=== PATIENT | female | born 1945 | race Caucasian/White ===

== ENCOUNTER 2017-05-25 10:32 | Inpatient (IN) | payer MEDICARE, BC ==
[~2017-05-25] VITALS: Ht 154.9 cm; Wt 59.1 kg
--- NOTE | 2017-05-25 10:46 | NUR ---
[facility] to ER after a GLF today; c/o severe right hip pain 10/10 scale; morphine 8 mg given in the field by the EMS
[2017-05-25] MEDS ORDERED: HYDROMORPHONE INJ 2 MG/ML DISP.SYRIN ONE ×2 (10:47→12:00)
--- NOTE | 2017-05-25 10:47 | NUR ---
seen by Cat with orders for pain medication
[2017-05-25 10:56] LABS: BASOPHILS % (AUTO) 0.4 % (0.0-2.0); EOSINOPHILS # (AUTO) 0.2 /CMM (0.0-0.7); EOSINOPHILS % (AUTO) 2.3 % (0.0-6.0); HEMATOCRIT 39 % (33-45); HEMOGLOBIN 13.2 g/dL (11.5-14.8); LYMPHOCYTES # (AUTO) 1.7 /CMM (0.8-4.8); LYMPHOCYTES % (AUTO) 18.4 % (20.0-44.0); MEAN CORPUSCULAR HEMOGLOBIN 31 PG (26.0-33.0); MEAN CORPUSCULAR HGB CONC 34 g/dl (31.0-36.0); MEAN CORPUSCULAR VOLUME 90 fL (82-100); MONOCYTES # (AUTO) 0.7 /CMM (0.1-1.30); MONOCYTES % (AUTO) 7.2 % (2.0-12.0); NEUTROPHILS # (AUTO) 6.5 /CMM (1.8-8.9); NEUTROPHILS % (AUTO) 71.7 % (43.0-81.0); PLATELET COUNT (AUTO) 310 /CMM (150-450); RDW COEFFICIENT OF VARIATION 13.5 (11.5-15.0); RED BLOOD CELL COUNT(AUTO) 4.33 MIL/uL (4.0-5.2); WHITE BLOOD COUNT (AUTO) 9.1 K/uL (4.3-11.0)
[2017-05-25] MEDS ORDERED: HYDROMORPHONE 1 MG/1 ML DISP.SYRIN IV ONE ×2 (11:00→12:00)
[2017-05-25 11:07] LABS: CALCIUM, SERUM 8.7 mg/dL (8.5-10.1); CARBON DIOXIDE 24 mmol/L (21-32); CHLORIDE 108 mmol/L (98-107); CREATININE 1.1 mg/dL (0.6-1.3); GLUCOSE 99 mg/dL (74-106); POTASSIUM 4.5 mmol/L (3.5-5.1); SODIUM SERUM 139 mmol/L (136-145); UREA NITROGEN, BLOOD 21 mg/dL (7-18)
[2017-05-25 11:08] LABS: INR 0.97 (0.87-1.13); PROTHROMBIN TIME 10.1 SECS (9.5-12.7)
--- NOTE | 2017-05-25 11:27 | NUR ---
EPIC PAGED, GROUP CONTRACT ANALYST
--- NOTE | 2017-05-25 11:29 | NUR ---
CALLED NURSING SUP. FOR MS BED
[2017-05-25] MEDS ORDERED: MAGNESIUM HYDROXIDE 30 ML UDC PO PRN (11:30)
[2017-05-25] MEDS ORDERED: HYDROCODONE/APAP 5/325MG 1 EACH TABLET PO PRN (11:30)
[2017-05-25] MEDS ORDERED: Z GUARD REMEDY 2 OZ OINT TP PRN (11:30)
[2017-05-25] MEDS ORDERED: MAG HYDROX/AL HYDROX/SIMETH 30 ML UDC PO PRN (11:30)
[2017-05-25] MEDS ORDERED: ACETAMINOPHEN 325 MG TABLET PO PRN (11:30)
--- NOTE | 2017-05-25 11:31 | NUR ---
BROOKS SMITH, FRANCIS DALAL CONCRETE PUMP OPERATOR
[2017-05-25] MEDS ORDERED: CARV3.122 PO (11:57)
[2017-05-25] MEDS ORDERED: VIT1CAPS9 PO (11:57)
[2017-05-25] MEDS ORDERED: ASPI-1169 PO (11:57)
[2017-05-25] MEDS ORDERED: DIPH25CA6 PO (11:57)
[2017-05-25] MEDS ORDERED: LANS30CA54 PO (11:57)
[2017-05-25] MEDS ORDERED: ROSU5TAB9 PO (11:57)
[2017-05-25 12:00] VITALS: BP 118/54
--- NOTE | 2017-05-25 12:09 | NUR ---
MS [id number]
--- NOTE | 2017-05-25 12:21 | NUR ---
GAVE REPORT TO [facility] ROOM [address] SHAKILA SOLORIO ADMITTING DX RT HIP FX
--- NOTE | 2017-05-25 13:30 | NUR ---
MS/CHRO PATIENT ADMITTED TO MED SURG FROM ER FOR DIAGNOSIS OF S/P FALL RIGHT HIP FRACTURE. REPORT GIVEN BY JOSEFINA FROM ER. A/O X 4. NO SIGNS OF ACUTE DISTRESS. COMPLAIN OF PAIN RATED 8/10 TO RIGHT HIP FRACTURE SITE. IV SITE RIGHT AC 18 GZ, INTACT AND FLUSHING WELL. CONTINENT OF BOWEL AND BLADDER. ALL NEEDS ATTENDED TO AT THIS TIME. CALL LIGHT WITHIN REACH. WILL CONTINUE TO MONITOR TO ENSURE SAFETY.
[2017-05-25] MEDS: MORPHINE SULFATE INJ 2 MG/ML DISP.SYRIN IV PRN ×2 (14:37→20:49)
[2017-05-25] MEDS ORDERED: diphenhydrAMINE HCL 25 MG CAPSULE PO PRN (15:30)
[2017-05-25] MEDS: CARVEDILOL 3.125 MG TABLET PO SCH ×3 (15:30→20:49)
[2017-05-25 16:00] VITALS: BP 166/70
--- NOTE | 2017-05-25 16:43 | NUR ---
MS/RN SEEN BY AYO BERNARDO PATIENT SEEN BY ORTHO AYO BERNARDO WITH ORDERS FOR RIGHT HIP HEMIARTHROPLASTY PROCEDURE TOMORROW NOON. CONSENT FORM OBTAINED. NPO POST MIDNIGHT TONIGHT.
--- NOTE | 2017-05-25 18:29 | NUR ---
MS/RN CLOSING NOTE PATIENT IN BED IN STABLE CONDITION. A/O X 4. NO SIGNS OF ACUTE DISTRESS. NO COMPLAIN OF PAIN OR DISCOMFORT. ALL NEEDS ATTENDED TO. CALL LIGHT WITHIN REACH. WILL ENDORSE TO NEXT SHIFT FOR CONTINUITY OF CARE.
[2017-05-25] MEDS: ONDANSETRON HCL/PF 4 MG/2 ML VIAL IVP PRN (18:53)
--- NOTE | 2017-05-25 19:40 | NUR ---
RN OPENING NOTES RECEIVED REPORT FROM DAYSHIFT RN. FOUND Pt ASLEEP IN BED. EVEN AND UNLABORED RESPIRATIONS. NO S/S OF ACUTE DISTRESS OR SOB NOTED. Pt IS A/OX4, VERBAL, ABLE TO MAKE NEEDS KNOWN. IV ACCESS ON RAC #18G, SL. SAFETY MEASURES IN PLACE. BED LOW, LOCKED, HOB ELEVATED, SIDE RAILS UP, CALL LIGHT AND BEDSIDE TABLE WITHIN REACH. WILL CONTINUE TO MONITOR Pt THROUGHOUT THE NIGHT FOR SAFETY.
[2017-05-25 20:00] VITALS: BP 117/72
[2017-05-25] MEDS: ZOLPIDEM TARTRATE 5 MG TABLET PO PRN (23:37)
[2017-05-26] VITALS (9 sets, daily range): BP systolic 122–153; BP diastolic 61–83
--- NOTE | 2017-05-26 00:10 | NUR ---
RN NOTES RECEIVED ORDER FROM FRANCISCO NAYAK FOR MARIA CATHETER INSERTION.
[2017-05-26] MEDS: MORPHINE SULFATE INJ 2 MG/ML DISP.SYRIN IV PRN ×2 (05:07→20:35)
--- NOTE | 2017-05-26 06:51 | NUR ---
RN CLOSING NOTES NO SIGNIFICANT CHANGES IN Pt's CONDITION. Pt REMAINS STABLE AT THIS TIME. NO S/S OF ACUTE DISTRESS OR SOB NOTED DURING THE NIGHT. Pt HAS BEEN NPO SINCE ASHLEY DEE FOR RT HIP PROCEDURE SCHEDULED AT NOON TODAY. ALL NEEDS MET AND ATTENDED TO. SAFETY MEASURES IN PLACE. WILL ENDORSE TO DAYSHIFT RN FOR Pt's RYLEE.
--- NOTE | 2017-05-26 07:30 | NUR ---
m/s microsoft bi architect: initial assessment received pt in bed awake, a/ox4. pt unable to turn and refusing to be turned due to pain. pt aware that she is laying on her pants, but was cut down as stated. voiced no discomfort at this time.
[2017-05-26 07:56] LABS: BASOPHILS % (AUTO) 0.1 % (0.0-2.0); EOSINOPHILS # (AUTO) 0.3 /CMM (0.0-0.7); EOSINOPHILS % (AUTO) 2.2 % (0.0-6.0); HEMATOCRIT 38 % (33-45); HEMOGLOBIN 12.8 g/dL (11.5-14.8); LYMPHOCYTES % (AUTO) 6.7 % (20.0-44.0); MEAN CORPUSCULAR HEMOGLOBIN 30 PG (26.0-33.0); MEAN CORPUSCULAR HGB CONC 34 g/dl (31.0-36.0); MEAN CORPUSCULAR VOLUME 90 fL (82-100); MONOCYTES # (AUTO) 0.9 /CMM (0.1-1.30); MONOCYTES % (AUTO) 5.9 % (2.0-12.0); NEUTROPHILS # (AUTO) 13.3 /CMM (1.8-8.9); NEUTROPHILS % (AUTO) 85.1 % (43.0-81.0); PLATELET COUNT (AUTO) 248 /CMM (150-450); RDW COEFFICIENT OF VARIATION 13.4 (11.5-15.0); RED BLOOD CELL COUNT(AUTO) 4.21 MIL/uL (4.0-5.2); WHITE BLOOD COUNT (AUTO) 15.5 K/uL (4.3-11.0)
--- NOTE | 2017-05-26 07:57 | NUR ---
m/s retreader: notes pt called and still in a lot of pain 10/10 right hip, stated, "can you call the anesthesiologist to put me out to sleep." informed pt that i will f/u with pmd. roseanna (acnp) here and made aware with order to give morphine 2mg ivp x1 now and continue q 4 hr prn. order read back and carried out and acknowledged. pharmacist notified to verify order, spoke to rosette. pt made aware and education provided re: morphine.
[2017-05-26] MEDS ORDERED: MORPHINE SULFATE INJ 2 MG/ML DISP.SYRIN IV ONE (08:00)
[2017-05-26] MEDS: CARVEDILOL 3.125 MG TABLET PO SCH ×2 (08:05→22:14)
[2017-05-26] MEDS: ASPIRIN 81 MG TAB.CHEW PO SCH (08:05)
--- NOTE | 2017-05-26 08:09 | NUR ---
m/s c architect: notes medicated with morphine 2mg ivp x 1 as ordered by rn due to 10/10 right hip pain. instructed to call for assistance. vss. will continue to monitor.
--- NOTE | 2017-05-26 08:39 | NUR ---
m/s dental laboratory worker: notes pt still in a lot of pain as stated. dr. freeman at bedside at this time.
[2017-05-26 08:43] LABS: CALCIUM, SERUM 8.6 mg/dL (8.5-10.1); CARBON DIOXIDE 25 mmol/L (21-32); CHLORIDE 106 mmol/L (98-107); GLUCOSE 109 mg/dL (74-106); MAGNESIUM 2.4 mg/dL (1.8-2.4); PHOSPHORUS 3.3 mg/dL (2.5-4.9); POTASSIUM 4.2 mmol/L (3.5-5.1); SODIUM SERUM 139 mmol/L (136-145); UREA NITROGEN, BLOOD 25 mg/dL (7-18)
--- NOTE | 2017-05-26 08:45 | NUR ---
m/s entertainer & comic: cardio f/u seen and examined by dr. freeman at this time. dr. freeman spoke to roseanna (acnp) and informed him that pt still in a lot of pain. received verbal order to give dilaudid 1mg ivp x 1 now and change morphine 2mg q2 hrs prn. order read back and carried out and acknowledged. pt made aware.
[2017-05-26] MEDS ORDERED: HYDROMORPHONE 1 MG/1 ML DISP.SYRIN IV ONE (09:00)
--- NOTE | 2017-05-26 09:10 | NUR ---
m/s funeral planning counselor: notes medicated with dilaudid 1mg ivp by rn due to 10/10 right hip pain. instructed to call for assistance. will continue to monitor.
--- NOTE | 2017-05-26 09:40 | NUR ---
m/s courtesy van driver: notes pt soundly asleep. resp. even and unlabored. no apparent distress noted. will continue to monitor.
[2017-05-26] MEDS: IV NS 0.9% 1,000 ML IV PRN (09:53)
--- NOTE | 2017-05-26 11:50 | NUR ---
m/s marketing information manager: notes family at bedside. pt to o.r. via bed accompanied by o.r. staff with chart. pt still wearing clothes and request for them to cut it off.
[2017-05-26] MEDS ORDERED: MORPHINE SULFATE INJ 10 MG/ML DISP.SYRIN ONE (12:11)
[2017-05-26] MEDS ORDERED: ROCURONIUM BROMIDE 50 MG/5 ML ONE ×2 (12:11→13:26)
[2017-05-26] MEDS ORDERED: BACITRACIN 50000 UNITS/VIAL ONE (12:46)
[2017-05-26] MEDS ORDERED: BUPIVACAINE 0.5 % PF 150 MG/30 ML VIAL ONE (12:46)
[2017-05-26] MEDS ORDERED: ACETAMINOPHEN 325 MG TABLET PO PRN (15:00)
[2017-05-26] MEDS ORDERED: MORPHINE SULFATE INJ 4 MG/ML DISP.SYRIN IV PRN ×2 (15:00)
[2017-05-26] MEDS ORDERED: DOCUSATE SODIUM 100 MG CAPSULE PO PRN (15:00)
[2017-05-26] MEDS ORDERED: SENNOSIDES 8.6 MG TABLET PO PRN (15:00)
--- NOTE | 2017-05-26 15:10 | NUR ---
m/s dry house attendant: notes received pt from recovery room with dx: s/p right hip arthroplasty. abduction pillow in place. dressing to right hip clean, dry, and intact. no bleeding/drainage noted. family at bedside. oriented to room and surroundings. voiced no discomfort at this time. will continue to monitor.
[2017-05-26] MEDS: oxyCODONE IR immediate release 5 MG CAPSULE PO PRN (15:25)
--- NOTE | 2017-05-26 15:25 | NUR ---
m/s clinical staff anesthesiologist: notes c/o 01/05 right hip pain. medicated with oxy ir 2.5mg po as ordered. instructed to call for assistance. will continue to monitor.
--- NOTE | 2017-05-26 15:30 | NUR ---
m/s inspector machine cut glass: notes late lunch served, but pt wants to rest a bit. call light within reach. will continue to monitor.
--- NOTE | 2017-05-26 16:00 | NUR ---
m/s fresh foods cake decorator: notes pt sounds asleep. no distress noted. call light within reach. will continue to monitor.
--- NOTE | 2017-05-26 16:25 | NUR ---
m/s enterer: notes sleeping at interval. vss. will continue to monitor.
--- NOTE | 2017-05-26 17:05 | NUR ---
m/s truck engine assembler: notes pt sleeping at interval. resp. even and unlabored. call light within reach. will continue to monitor.
--- NOTE | 2017-05-26 17:40 | NUR ---
m/s assistant inventory manager: notes awaken at this time. dinner served with hob elevated at 90 degree. voiced no discomfort. instructed to call for assistance. will continue to monitor.
[2017-05-26] MEDS: TRAMADOL HCL 50 MG TABLET PO PRN ×2 (18:02→22:14)
--- NOTE | 2017-05-26 18:02 | NUR ---
m/s rv repair technician: notes c/o 12/05 right hip pain, medicated with ultram 50mg po as ordered. instructed to call for assistance. needs attended. will continue to monitor.
--- NOTE | 2017-05-26 19:35 | NUR ---
MS/RN NOTES PT RECEIVED AWAKE, SEMI FOWLERS POSITION. A/OX4. ON 2L O2 VIA NC, BREATHING EVEN AND UNLABORED. DENIES SOB, NOTED PAIN TO RIGHT HIP 11/05. MARIA IN PLACE AND DRAINING TO GRAVITY. IV TO RAC RUNNING IVF ORDERED. ABDUCTOR PILLOW IN PLACE. BED IN LOW/LOCKED POSITION WITH CALL LIGHT IN REACH. SIDE RAILS UPX2. WILL CONTINUE TO MONITOR
--- NOTE | 2017-05-26 20:30 | NUR ---
MS/RN NOTES PT C/O OF PAIN INCREASED TO 8/10. RAC IV SITE NOTED TO BE LEAKING. NEW IV STARTED ON LEFT HAND #22. ADMINISTERED PRN MORPHINE 2MG IV ORDERED. FLUIDS RESUMED. WILL MONITOR FOR EFFECTIVENESS.
[2017-05-26] MEDS ORDERED: CEFAZOLIN 2 GM ONE (21:48)
[2017-05-26] MEDS: CEFAZOLIN 2 GM in IV D5W 50 ML IV SCH (22:03)
--- NOTE | 2017-05-26 22:15 | NUR ---
MS/RN NOTES PT C/O PAIN TO RIGHT HIP 12/05 AND REQUESTING PAIN MEDICATION. BP CHECKED = 153/83 WITH [id number] ADMINISTERED SCHEDULED COREG AND PRN ULTRAM ORDERED. ICE PACK PROVIDED. WILL CONTINUE TO MONITOR.
[2017-05-27 00:20] VITALS: BP 159/96
--- NOTE | 2017-05-27 00:38 | NUR ---
MS/RN NOTES NOTIFIED MALINI SINGH ABOUT PT'S PERSISTENT PAIN >7/10 TO RIGHT HIP. REVIEWED PT'S CURRENT PAIN MEDICATIONS AND INFORMED HER THAT PT SAID DILAUDID HELPED EARLIER TODAY. PER MALINI SINGH, CONTINUE CURRENT PAIN MEDS AND TRY TO ADMINISTER ROUTINELY WHEN THEY ARE DUE. NO NEW ORDERS AT THIS TIME. RELAYED INFORMATION TO PT AND PT VERBALIZED UNDERSTANDING. ADMINISTERED PRN MORPHINE 4MG IV ORDERED. PT ALSO REPOSITIONED. WILL MONITOR FOR EFFECTIVENESS.
[2017-05-27] MEDS: oxyCODONE IR immediate release 5 MG CAPSULE PO PRN (02:04)
[2017-05-27] MEDS: IV NS 0.9% 1,000 ML IV PRN ×2 (02:07→11:22)
[2017-05-27 04:00] VITALS: BP 152/74
[2017-05-27] MEDS: MORPHINE SULFATE INJ 2 MG/ML DISP.SYRIN IV PRN ×3 (04:02→11:21)
[2017-05-27] MEDS ORDERED: CEFAZOLIN 2 GM ONE (05:07)
[2017-05-27] MEDS: CEFAZOLIN 2 GM in IV D5W 50 ML IV SCH ×2 (05:18→14:23)
--- NOTE | 2017-05-27 06:53 | NUR ---
MS/RN PT A/OX4, REMAINS ON 2L O2 VIA NC, BREATHING EVEN AND UNLABORED. NO SOB NOTED. PAIN NOTED TO RIGHT HIP THROUGHOUT SHIFT ANYWHERE FROM 7-03/07. ROTATION OF PAIN MEDICATIONS PROVIDED, WITH FREQUENT V/S CHECKS. PT STATES "IT IS NOT WORKING". PT SEEN COMFORTABLE AND SLEEPING INTERMITTENTLY DURING SHIFT. ICE PACKS PROVIDED. DRESSING TO RIGHT HIP C/D/I. MARIA IN PLACE AND DRAINING TO GRAVITY. ABDUCTOR PILLOW IN PLACE. IV TO LEFT HAND PATENT AND INTACT RUNNING IVF ORDERED. TRIED TO MAKE PT COMFORTABLE POSSIBLE DURING SHIFT. ALL NEEDS MET. ASSISTED WITH REPOSITIONING PRN. BED REMAINS IN LOW/LOCKED POSITION WITH CALL LIGHT IN REACH AND SIDE RAILS UPX2. WILL ENDORSE TO AM SHIFT RYLEE AND TO FOLLOW UP WITH MD REGARDING ANCEF ORDER. PAPER ORDER STATES ANCEF X3 DOSES BUT IN EMAR FREQUENCY IS Q8H. 2 DOSES ADMINISTERED ON MY SHIFT.
--- NOTE | 2017-05-27 07:35 | NUR ---
MS RN OPENING NOTES RECEIVED PT AWAKE IN BED IN NO ACUTE SIGNS OF DISTRESS. A/O X 4, NO C/O PAIN OR DISCOMFORTS VOICED AT THIS TIME. ON 02 VIS N/C @ 2LPM, RESPIRATIONS EVEN WITH NO SOB NOTED. DRESSING ON RIGHT HIP INTACT, DRY AND CLEAN. IV ACCESS ON LEFT HAND G#22 INTACT AND PATENT, IVF OF NS @ 125ML/HR INFUSING WELL, NO SIGNS OF INFILTRATION NOTED. MARIA IN PLACED AND ACTIVELY DRAINING CLEAR YELLOW URINE TO URINARY BAG @ BEDSIDE. HOB ELEVATED. BED LOCKED AND IN LOWEST POSITION WITH SIDE-RAILS UP X2. CALL LIGHT WITHIN EASY TO REACH. WILL CONTINUE TO MONITOR
[2017-05-27 08:00] VITALS: BP 150/73
[2017-05-27] MEDS: RIVAROXABAN 10 MG TABLET PO SCH (08:40)
[2017-05-27] MEDS: CARVEDILOL 3.125 MG TABLET PO SCH ×2 (08:41→21:20)
[2017-05-27] MEDS: ASPIRIN 81 MG TAB.CHEW PO SCH (08:41)
[2017-05-27] MEDS ORDERED: HYDROMORPHONE INJ 2 MG/ML DISP.SYRIN IV ONE (08:45)
--- NOTE | 2017-05-27 08:53 | NUR ---
RN NOTES PATIENT SEEN BY DR MONTOYA WITH C/O PAIN ON RIGHT HIP WITH INTENSITY OF 10/10, DR MONTOYA ORDER TO GIVE DILAUDID 2MG IVP X 1DOSE, ORDERED CARRIED OUT. WILL CONTINUE TO MONITOR
[2017-05-27 09:16] LABS: BASOPHILS % (AUTO) 0.2 % (0.0-2.0); EOSINOPHILS # (AUTO) 0.1 /CMM (0.0-0.7); EOSINOPHILS % (AUTO) 0.5 % (0.0-6.0); HEMATOCRIT 32 % (33-45); LYMPHOCYTES # (AUTO) 1.1 /CMM (0.8-4.8); LYMPHOCYTES % (AUTO) 9.3 % (20.0-44.0); MEAN CORPUSCULAR HEMOGLOBIN 32 PG (26.0-33.0); MEAN CORPUSCULAR HGB CONC 35 g/dl (31.0-36.0); MEAN CORPUSCULAR VOLUME 91 fL (82-100); MONOCYTES # (AUTO) 1.1 /CMM (0.1-1.30); MONOCYTES % (AUTO) 9.7 % (2.0-12.0); NEUTROPHILS # (AUTO) 9.3 /CMM (1.8-8.9); NEUTROPHILS % (AUTO) 80.3 % (43.0-81.0); PLATELET COUNT (AUTO) 216 /CMM (150-450); RDW COEFFICIENT OF VARIATION 13.7 (11.5-15.0); RED BLOOD CELL COUNT(AUTO) 3.45 MIL/uL (4.0-5.2); WHITE BLOOD COUNT (AUTO) 11.6 K/uL (4.3-11.0)
[2017-05-27 09:42] LABS: ALANINE AMINOTRANSFERASE 19 U/L (12-78); ALBUMIN 2.8 g/dL (3.4-5.0); ALKALINE PHOSPHATASE 58 U/L (46-116); ASPARTATE AMINOTRANSFERASE 24 U/L (15-37); BILIRUBIN,TOTAL 0.4 mg/dL (0.2-1.0); CALCIUM, SERUM 7.8 mg/dL (8.5-10.1); CARBON DIOXIDE 24 mmol/L (21-32); CHLORIDE 107 mmol/L (98-107); CREATININE 0.9 mg/dL (0.6-1.3); GLUCOSE 123 mg/dL (74-106); MAGNESIUM 2.3 mg/dL (1.8-2.4); PHOSPHORUS 2.4 mg/dL (2.5-4.9); POTASSIUM 4.2 mmol/L (3.5-5.1); SODIUM SERUM 141 mmol/L (136-145); TOTAL PROTEIN, SERUM 6.1 g/dL (6.4-8.2); UREA NITROGEN, BLOOD 17 mg/dL (7-18)
[2017-05-27] MEDS: ONDANSETRON HCL/PF 4 MG/2 ML VIAL IVP PRN ×2 (12:31→18:33)
--- NOTE | 2017-05-27 12:34 | NUR ---
RN NOTES PT C/O NAUSEA, PRN ZOFRAN 4MG IVP GIVEN ORDERED. WILL CONTINUE TO MONITOR.
[2017-05-27] MEDS ORDERED: K PHOS NEUTRAL 250 MG TABLET PO ONE (13:00)
[2017-05-27] MEDS ORDERED: HYDROCODONE/APAP 10/325MG 1 EA TABLET PO PRN (13:30)
[2017-05-27 16:00] VITALS: BP 152/79
[2017-05-27] MEDS: HYDROMORPHONE 1 MG/1 ML DISP.SYRIN IV PRN ×2 (16:53→21:21)
--- NOTE | 2017-05-27 18:48 | NUR ---
MS RN CLOSING NOTES PT RESTING IN BED WATCHING TV. HOB ELEVATED. A/O X 4 AND VERBALLY RESPONSIVE. ON 02 VIA N/C @ 2LPM, RESPIRATIONS EVEN WITH NO SOB NOTED. DRESSING ON RIGHT HIP INTACT, DRY AND CLEAN. IV ACCESS ON LEFT HAND G#22 INTACT AND PATENT, FLUSHES WELL. MARIA IN PLACED AND ACTIVELY DRAINING CLEAR YELLOW URINE TO URINARY BAG @ BEDSIDE, OUTPUT THIS TOUR-600ML. KEPT BED LOCKED AND IN LOWEST POSITION WITH SIDE-RAILS UP X2. CALL LIGHT WITHIN EASY TO REACH. ALL NEEDS AND CARE ATTENDED WELL. WILL ENDORSED TO WELFARE ELIGIBILITY INTERVIEWER NURSE FOR RYLEE.
--- NOTE | 2017-05-27 19:30 | NUR ---
RN NOTES RECEIVED PATIENT IN BED AWAKE, AO X 3, ABLE TO MAKE NEEDS KNOWN. NO ACUTE DISTRESS NOTED. MONITORED FOR PAIN. IV SITE PATENT, INTACT; FLUSHED. HIP PRECAUTIONS IN PLACE. SAFETY REMINDERS GIVEN. MARIA CATH PATENT, INTACT; DRAINING CLEAR YELLOW URINE. ON LOW BED WITH BILATERAL UPPER SIDE RAILS UP. CALL LIGHT WITHIN EASY REACH. WILL CONTINUE TO MONITOR.
[2017-05-27 20:00] VITALS: BP 142/72
[2017-05-27] MEDS: TRAMADOL HCL 50 MG TABLET PO PRN (23:42)
[2017-05-28] MEDS: ZOLPIDEM TARTRATE 5 MG TABLET PO PRN (01:09)
[2017-05-28] MEDS: TRAMADOL HCL 50 MG TABLET PO PRN ×3 (05:26→18:21)
--- NOTE | 2017-05-28 06:14 | NUR ---
RN NOTES RECEIVED PATIENT IN BED ASLEEP, EASILY AROUSABLE. RESPIRATIONS EVEN. NO SIGNS OF PAIN NOTED. DUE MEDS GIVEN WITH NO ASE NOTED. NEEDS ATTENDED. KEPT CLEAN AND DRY. SAFETY PRECAUTIONS AND COMFORT MEASURES IN PLACE. WILL GIVE REPORT TO DAY SHIFT FOR CONTINUITY OF CARE.
--- NOTE | 2017-05-28 07:27 | NUR ---
MS RN OPENING NOTES RECEIVED PATIENT ASLEEP IN BED, EASILY AROUSABLE. A/O X 4, VERBALLY RESPONSIVE WITH NO C/O PAIN OR DISCOMFORTS VOICED AT THIS TIME. ON 02 VIA N/C @ 2LPM, RESPIRATIONS EVEN WITH NO SOB NOTED. DRESSING ON RIGHT HIP INTACT, DRY AND CLEAN. IV ACCESS ON LEFT HAND G#22 INTACT AND PATENT, FLUSHES WELL. MARIA IN PLACED AND ACTIVELY DRAINING CLEAR YELLOW URINE TO URINARY BAG @ BEDSIDE. HOB ELEVATED. BED LOCKED AND IN LOWEST POSITION WITH SIDE-RAILS UP X2. CALL LIGHT WITHIN EASY TO REACH. WILL CONTINUE TO MONITOR
[2017-05-28 07:46] LABS: CALCIUM, SERUM 8.1 mg/dL (8.5-10.1); CARBON DIOXIDE 26 mmol/L (21-32); CHLORIDE 104 mmol/L (98-107); CREATININE 0.8 mg/dL (0.6-1.3); GLUCOSE 117 mg/dL (74-106); MAGNESIUM 2.4 mg/dL (1.8-2.4); PHOSPHORUS 2.3 mg/dL (2.5-4.9); POTASSIUM 3.9 mmol/L (3.5-5.1); SODIUM SERUM 137 mmol/L (136-145); UREA NITROGEN, BLOOD 19 mg/dL (7-18)
[2017-05-28 07:50] LABS: BASOPHILS % (AUTO) 0.4 % (0.0-2.0); EOSINOPHILS # (AUTO) 0.7 /CMM (0.0-0.7); HEMATOCRIT 30 % (33-45); HEMOGLOBIN 10.1 g/dL (11.5-14.8); LYMPHOCYTES # (AUTO) 1.3 /CMM (0.8-4.8); MEAN CORPUSCULAR HEMOGLOBIN 32 PG (26.0-33.0); MEAN CORPUSCULAR HGB CONC 34 g/dl (31.0-36.0); MEAN CORPUSCULAR VOLUME 92 fL (82-100); MONOCYTES % (AUTO) 9.8 % (2.0-12.0); NEUTROPHILS # (AUTO) 6.9 /CMM (1.8-8.9); NEUTROPHILS % (AUTO) 69.8 % (43.0-81.0); PLATELET COUNT (AUTO) 196 /CMM (150-450); RDW COEFFICIENT OF VARIATION 13.6 (11.5-15.0); RED BLOOD CELL COUNT(AUTO) 3.23 MIL/uL (4.0-5.2); WHITE BLOOD COUNT (AUTO) 9.9 K/uL (4.3-11.0)
[2017-05-28 08:00] VITALS: BP 154/75
[2017-05-28] MEDS: oxyCODONE IR immediate release 5 MG CAPSULE PO PRN (08:57)
[2017-05-28] MEDS: ASPIRIN 81 MG TAB.CHEW PO SCH (08:58)
[2017-05-28] MEDS: RIVAROXABAN 10 MG TABLET PO SCH (08:58)
[2017-05-28] MEDS: CARVEDILOL 3.125 MG TABLET PO SCH (08:59)
[2017-05-28] MEDS: HYDROMORPHONE 1 MG/1 ML DISP.SYRIN IV PRN (12:04)
[2017-05-28] MEDS ORDERED: RIVA10TA PO (12:04)
[2017-05-28] MEDS ORDERED: TRAM50TA2 PO (12:04)
[2017-05-28] MEDS ORDERED: Hydrocodone/Apap 10/325MG PO (12:04)
--- NOTE | 2017-05-28 12:32 | NUR ---
RN NOTES PATIENT SEEN AND EVALUATED BY DR WILLS WITH ORDER TO DISCONTINUE MARIA CATHETER. ORDER CARRIED OUT. NO HEMATURIA NOTED. WILL CONTINUE TO MONITOR.
[2017-05-28 16:00] VITALS: BP 149/76
--- NOTE | 2017-05-28 16:21 | NUR ---
RN NOTES PT FOR DISCHARGE TODAY AT [facility], REPORT GIVEN TO NURSE LEWIS.
--- NOTE | 2017-05-28 18:39 | NUR ---
RN DISCHARGED NOTED PT DISCHARGED TO [facility] WITH STABLE V/S. A/O X4. PT LEFT UNIT @ 1830H CONNECTED TO PORTABLE 02 AT 2LPM VIA N/C, NO SIGNS OF DISTRESS DURING DISCHARGE. . DRESSING INTACT, DRY, CLEAN WITH NO ACTIVE BLEEDING NOTED. PT REFUSED PHOTO OF SURGICAL SITE ON RIGHT HIP. V/S DONE AND RECORDED. BELONGINGS CHECKED, COUNTED AND SIGNED FORM. EXIT CARE REVIEWED AND HEALTH TEACHINGS GIVEN TO PT AND VERBALIZED UNDERSTANDING. PT REFUSED PNA VACCINE TO BE GIVEN AND SAID THAT SHE WILL TAKE IT PROBABLY IN [facility] OR SOMEWHERE ELSE. MD AND CHARGE NURSE AWARE OF DISCHARGE.
== END 2017-05-28 18:40 | DRG 469 ==
LOC: ER 10:34 → MED 12:20
PROVIDERS: ADMIT Internal Medicine; ATTEND Internal Medicine
PROC: 0SRR019 Replacement of Right Hip Joint, Femoral Surface with Metal Synthetic Substitute, Cemented, Open Approach (ICD-10-PCS; principal; 2017-05-26 12:51)
DX: S72.011A Unspecified intracapsular fracture of right femur, initial encounter for closed fracture (principal); N17.0 Acute kidney failure with tubular necrosis; I50.32 Chronic diastolic (congestive) heart failure; I11.0 Hypertensive heart disease with heart failure; E78.5 Hyperlipidemia, unspecified; W13.8XXA Fall from, out of or through other building or structure, initial encounter; W01.0XXA Fall on same level from slipping, tripping and stumbling without subsequent striking against object, initial encounter; Y93.31 Activity, mountain climbing, rock climbing and wall climbing; Y92.9 Unspecified place or not applicable; Z79.82 Long term (current) use of aspirin; Z86.73 Personal history of transient ischemic attack (TIA), and cerebral infarction without residual deficits; F17.200 Nicotine dependence, unspecified, uncomplicated; K21.9 Gastro-esophageal reflux disease without esophagitis; Z79.899 Other long term (current) drug therapy
CPT/HCPCS: 36415; 71010-TC; 72170-TC; 73110; 73502; 80048-TC; 80053-TC; 83735-TC; 84100-TC; 85025-TC; 85730-TC; 86850-TC; 86921-TC; 88305-TC; 88311-TC; 93307-TC; 97110-TC; 97530-TC; A4217; A4606; A6209; A6402; J0690; J1100; J1170; J2270; J2405; J2704; J2710; J3490; J7030; J7060; Z7610